=== PATIENT | female | born 1995 | race Caucasian/White ===

== ENCOUNTER 2017-11-29 11:22 | Emergency (ER) | payer SELFPAY ==
[2017-11-29 11:44] LABS: Bilirubin Negative (Negative); Blood, Urine Large (Negative); Clarity Slightly Cloudy (Clear); Glucose, Urine (Dipstick) Negative (Negative); Leukocyte Moderate (Negative); Nitrite Negative (Negative); Protein, Urine (Dipstick) > or equal to 300 mg/dL (Neg-Trace); Specific Gravity, Urine 1.025 (1.005-1.030); Urobilinogen 0.2 mg/dL (0.2-1.0)
[2017-11-29 11:50] LABS: RBC/HPF GREATER THAN 50-TNTC HPF (0-3); Squamous Epithelial 0-3 HPF (0-3)
[2017-11-29 11:51] LABS: Bacteria/HPF Rare-Few HPF (None Seen); Other Microscopic Description NO
[2017-11-29 11:53] LABS: Specific Gravity 1.025 (1.002-1.036)
[2017-11-29 11:58] LABS: Pregnancy Test - Urine (BHCG) Negative (Negative); Pregu Control Background? CLEAR/WHITE (CLR/WHITE); Pregu Control Bar Appear? YES (CONTROL BAR)
[2017-11-29] MEDS ORDERED: Ondansetron ODT 4 MG TAB ONE (12:41)
[2017-11-29] MEDS ORDERED: Acetaminophen/Codeine 30-300mg Tablet ONE (12:50)
[2017-11-29] MEDS ORDERED: Cephalexin 250 MG CAP ONE (12:50)
--- NOTE | 2017-11-29 14:02 | CT ---
CT ABDOMEN AND PELVIS WITHOUT CONTRAST: Date: 11/29/17 HISTORY: Hematuria. Left lower quadrant pain. Urinary frequency. FINDINGS: Absence of oral and IV contrast reduces the sensitivity of exam, particularly for evaluation of solid organs and bowel. The lung bases are clear. No free air or free fluid is seen in the abdomen or pelvis. No calcified ga llstones are seen. No calculi seen in the kidneys, ureters, or the urinary bladder. No hydroureterone phrosis identified on either side. Uterus and ovaries are present. A normal appearing appendix is see n. IMPRESSION: No CT evidence of urinary tract calculi or obstruction. POS: OFF
== END 2017-11-29 13:02 | disposition home or self-care (01) ==
LOC: NAV ERS 11:22
DX: N39.0 Urinary tract infection, site not specified (principal)
CPT/HCPCS: 74176; 81003; 81015; 81025; 87077; 87086; 87186; Q0162